=== PATIENT | male | born 1985 | race Two or more races ===

== ENCOUNTER → 2017-03-27 | Outpatient (REF) | payer OTHER, MEDICAID | LOC: M LAB REF 09:00 | PROVIDERS: ATTEND Urology | DX: Z30.2 Encounter for sterilization (principal) ==

== ENCOUNTER → 2017-05-27 | Outpatient (REF) | payer OTHER, MEDICAID ==
[2017-05-27 08:05] LABS: IMMMOTILE SPERM CENTRIFUGED ABSENT (ABSENT); IMMOTILE SPERM ABSENT (ABSENT); MOTILE SPERM ABSENT (ABSENT); MOTILE SPERM CENTRIFUGED ABSENT (ABSENT); SPERM ABNORMAL FORMS WBC'S NOTED
== END ==
LOC: M LAB REF 07:42
PROVIDERS: ATTEND Urology
DX: Z30.2 Encounter for sterilization (principal)